=== PATIENT | male | born 1965 | race Native Hawaiian/Other Pacific Islander ===

== ENCOUNTER 2016-10-03 13:21 | Inpatient (IN) | payer MEDICARE, MEDICAID ==
[~2016-10-03] VITALS: Ht 180.3 cm; Wt 127.5 kg
[~2016-10-03 13:21] MED LIST: BENZ1TAB10 PO; HALOD50I IM; MIRT15 PO; QUET200T PO
[2016-10-03] MEDS ORDERED: DiphenhydrAMINE HCL 50 MG/ML VIAL IM ONE (14:00)
[2016-10-03] MEDS ORDERED: LORazepam 2 MG/ML VIAL IM ONE ×2 (14:00→16:45)
[2016-10-03] MEDS ORDERED: HALOPERIDOL LACTATE 5 MG/ML VIAL IM ONE (14:00)
[2016-10-03 15:11] LABS: BASOPHILS % (AUTO) 0.5 % (0.0-2.0); EOSINOPHILS % (AUTO) 1.8 % (1.0-6.0); HEMATOCRIT 41.2 % (41-53); HEMOGLOBIN 13.4 g/dL (13.5-17.5); LYMPHOCYTES # (AUTO) 2.2 K/uL (1.0-4.8); LYMPHOCYTES % (AUTO) 23.3 % (22.0-44.0); MEAN CORPUSCULAR HEMOGLOBIN 28.8 pg (26.0-34.0); MEAN CORPUSCULAR HGB CONC 32.6 G/dL (31.0-37.0); MEAN CORPUSCULAR VOLUME 88 fL (80-100); MONOCYTES # (AUTO) 0.6 K/uL (0.1-1.0); MONOCYTES % (AUTO) 6.5 % (2.0-9.0); NEUTROPHILS # (AUTO) 6.5 K/uL (1.8-7.7); NEUTROPHILS % (AUTO) 67.9 % (40.0-70.0); PLATELET COUNT (AUTO) 295 K/uL (150-450); RED BLOOD CELL COUNT(AUTO) 4.67 MIL/uL (4.50-5.90); RED CELL DISTRIBUTION WIDTH 13.9 % (11.5-14.5); WHITE BLOOD COUNT (AUTO) 9.5 K/uL (4.5-11.0)
[2016-10-03] MEDS ORDERED: ZOLPIDEM TARTRATE 10 MG TABLET PO PRN (15:15)
[2016-10-03 15:19] LABS: ANION GAP 9 mmol/L (8-16); CALCIUM, TOTAL 9.1 mg/dL (8.8-10.5); CARBON DIOXIDE 26 mmol/L (22-29); CHLORIDE 103 mmol/L (98-107); CREATININE 0.77 mg/dL (0.60-1.30); GLOMERULAR FILTR. RATE CALC > 60 mL/min (>60); SODIUM SERUM 138 mmol/L (136-145); UREA NITROGEN, BLOOD 11 mg/dL (7-18)
[2016-10-03 15:24] LABS: ALANINE AMINOTRANSFERASE 27 U/L (12-78); ALBUMIN 4.1 g/dL (3.4-5.0); ASPARTATE AMINOTRANSFERASE 37 U/L (15-37); BILIRUBIN,TOTAL 0.3 mg/dL (0.1-1.0)
[2016-10-03] MEDS: HALOPERIDOL 5 MG TABLET PO PRN (23:04)
[2016-10-03] MEDS: LORazepam 2 MG TABLET PO PRN (23:04)
[2016-10-04 10:55] VITALS: BP 119/91
[2016-10-05] MEDS: LORazepam 2 MG TABLET PO PRN (07:53)
[2016-10-05] MEDS: HALOPERIDOL 5 MG TABLET PO PRN (07:53)
[2016-10-05 08:25] VITALS: BP 111/72
[2016-10-05] MEDS ORDERED: QUET200T PO ×2 (09:29→14:24)
[2016-10-05] MEDS ORDERED: HALOPERIDOL DECANOATE 50 MG/ML AMP IM SCH (09:30)
[2016-10-05] MEDS ORDERED: HALOPERIDOL DECANOATE 100 MG/ML AMP IM SCH (09:55)
[2016-10-05] MEDS: QUEtiapine FUMARATE 200 MG TABLET PO SCH (09:59)
[2016-10-05] MEDS ORDERED: ONDANSETRON HCL 4 MG TABLET PO PRN (13:15)
[2016-10-05] MEDS ORDERED: BACITRACIN 28.4 GM OINTMENT TP PRN (13:15)
[2016-10-05] MEDS ORDERED: PETROLATUM,WHITE 71 GM JELLY TP PRN (13:15)
[2016-10-05] MEDS ORDERED: ACETAMINOPHEN 325 MG TABLET PO PRN (13:15)
[2016-10-05] MEDS ORDERED: ALBUTEROL SULFATE HFA 90 MCG/PUFF 8 GM INHALER IH PRN (13:15)
[2016-10-05] MEDS ORDERED: IBUPROFEN 600 MG TABLET PO PRN (13:15)
[2016-10-05] MEDS ORDERED: MAG HYDROX/AL HYDROX/SIMETH ES 30 ML SUSPENSION UDCUP PO PRN (13:15)
[2016-10-05] MEDS ORDERED: LOPERAMIDE HCL 2 MG CAPSULE PO PRN (13:15)
[2016-10-05] MEDS ORDERED: BENZOCAINE/MENTHOL LOZENGE [8 LOZENGES/PACKET] MM PRN (13:15)
[2016-10-05] MEDS ORDERED: MAGNESIUM HYDROXIDE SUSPENSION 30 ML UDCUP PO PRN (13:15)
[2016-10-05] MEDS ORDERED: CloNIDine HCL 0.1 MG TABLET PO PRN (13:15)
[2016-10-05 16:39] VITALS: BP 136/62
[2016-10-05] MEDS ORDERED: QUEtiapine FUMARATE 200 MG TABLET PO SCH (21:00)
[2016-10-06 06:53] LABS: BASOPHILS % (AUTO) 0.4 % (0.0-2.0); EOSINOPHILS % (AUTO) 3.8 % (1.0-6.0); HEMOGLOBIN 13.7 g/dL (13.5-17.5); LYMPHOCYTES # (AUTO) 2.3 K/uL (1.0-4.8); LYMPHOCYTES % (AUTO) 26.4 % (22.0-44.0); MEAN CORPUSCULAR HEMOGLOBIN 28.5 pg (26.0-34.0); MEAN CORPUSCULAR HGB CONC 32.5 G/dL (31.0-37.0); MEAN CORPUSCULAR VOLUME 88 fL (80-100); MONOCYTES # (AUTO) 0.6 K/uL (0.1-1.0); MONOCYTES % (AUTO) 6.8 % (2.0-9.0); NEUTROPHILS # (AUTO) 5.5 K/uL (1.8-7.7); NEUTROPHILS % (AUTO) 62.6 % (40.0-70.0); PLATELET COUNT (AUTO) 293 K/uL (150-450); RED BLOOD CELL COUNT(AUTO) 4.79 MIL/uL (4.50-5.90); RED CELL DISTRIBUTION WIDTH 13.5 % (11.5-14.5); WHITE BLOOD COUNT (AUTO) 8.8 K/uL (4.5-11.0)
[2016-10-06 07:31] LABS: ALANINE AMINOTRANSFERASE 28 U/L (12-78); ALBUMIN 3.8 g/dL (3.4-5.0); ANION GAP 9 mmol/L (8-16); ASPARTATE AMINOTRANSFERASE 34 U/L (15-37); BILIRUBIN,TOTAL 0.4 mg/dL (0.1-1.0); CALCIUM, TOTAL 8.6 mg/dL (8.8-10.5); CARBON DIOXIDE 27 mmol/L (22-29); CHLORIDE 107 mmol/L (98-107); CHOL/HDL RATIO 3.4 (4.2-7.3); GLOMERULAR FILTR. RATE CALC > 60 mL/min (>60); PHOSPHORUS 3.8 mg/dL (2.5-4.9); POTASSIUM 3.9 mmol/L (3.5-5.1); SODIUM SERUM 143 mmol/L (136-145); THYROID STIMULATING HORMONE 1.93 uIU/mL (0.36-3.74); TOTAL PROTEIN, SERUM 7.7 g/dL (6.4-8.2); UREA NITROGEN, BLOOD 11 mg/dL (7-18)
[2016-10-06 07:34] LABS: HEMOGLOBIN A1C 5.4 % (4.5-6.2)
[2016-10-06 08:27] VITALS: BP 123/75
[2016-10-06] MEDS ORDERED: DOCUSATE SODIUM 100 MG CAPSULE PO SCH (09:00)
[2016-10-06] MEDS ORDERED: OMEPRAZOLE 20 MG CAPSULE PO SCH (09:00)
[2016-10-06] MEDS: LORazepam 2 MG TABLET PO PRN (10:00)
[2016-10-06] MEDS: QUEtiapine FUMARATE 200 MG TABLET PO SCH (10:00)
[2016-10-06] MEDS: HALOPERIDOL 5 MG TABLET PO PRN (10:00)
[2016-10-06] MEDS ORDERED: HALOD100I IM (10:07)
[2016-10-06] MEDS ORDERED: QUET200T PO (10:07)
[2016-10-06] MEDS ORDERED: DSS100 PO (12:42)
[2016-10-06] MEDS ORDERED: OMEP20 PO (12:42)
[2016-10-07 09:41] LABS: HEPATITIS Bs ANTIGEN SCREEN P Positive (Negative); HEPATITIS C AB SCREEN >11.0 s/co ratio (0.0-0.9)
== END 2016-10-06 14:15 | disposition home or self-care (01) | DRG 885 ==
LOC: EMS 13:23 → 3EC 10-04 10:07
PROVIDERS: ADMIT Psychiatry & Neurology Child & Adolescent Psychiatry; ATTEND Psychiatry & Neurology Child & Adolescent Psychiatry
DX: F25.9 Schizoaffective disorder, unspecified (principal); F20.0 Paranoid schizophrenia; F17.210 Nicotine dependence, cigarettes, uncomplicated; B18.2 Chronic viral hepatitis C; F15.90 Other stimulant use, unspecified, uncomplicated; I10 Essential (primary) hypertension; J44.9 Chronic obstructive pulmonary disease, unspecified; K21.9 Gastro-esophageal reflux disease without esophagitis; R41.83 Borderline intellectual functioning; F12.90 Cannabis use, unspecified, uncomplicated; Z72.89 Other problems related to lifestyle; Z71.41 Alcohol abuse counseling and surveillance of alcoholic; Z71.51 Drug abuse counseling and surveillance of drug abuser; Z71.6 Tobacco abuse counseling; Z79.899 Other long term (current) drug therapy; Z59.9 Problem related to housing and economic circumstances, unspecified; Z91.14 Patient's other noncompliance with medication regimen; Z91.5 Personal history of self-harm; Z79.51 Long term (current) use of inhaled steroids
CPT/HCPCS: 82306; 83036; 83735; 84100; 84443; 86706; 86707; 86709; 86803; 87340; 87350; 99285; 99406; G0480; J1200; J1630; J1631; J2060

== ENCOUNTER 2016-10-10 16:01 | Emergency (ER) | payer MEDICARE, MEDICAID ==
[~2016-10-10] VITALS: Ht 180.3 cm; Wt 122.7 kg
[~2016-10-10 16:01] MED LIST changes: -BENZ1TAB10 PO; +DSS100 PO; +HALOD100I IM; -HALOD50I IM; -MIRT15 PO; +OMEP20 PO
[2016-10-10 16:42] VITALS: BP 139/71
[2016-10-10 16:46] LABS: APPEARANCE,URINE CLOUDY (CLEAR); GLUCOSE, URINE (UA) NEGATIVE (NEGATIVE); KETONES,URINE NEGATIVE (NEGATIVE); LEUKOCYTE ESTERASE ,URINE SMALL (NEGATIVE); PROTEIN,URINE POS 1+ (NEGATIVE)
[2016-10-10 16:52] LABS: ADD UA MICROSCOPIC YES; OCCULT BLOOD,URINE TRACE (NEGATIVE)
[2016-10-10 16:53] LABS: SQUAMOUS EPITHELIAL CELL,UR Many /LPF (None Seen)
[2016-10-10 17:40] LABS: BASOPHILS % (AUTO) 0.6 % (0.0-2.0); EOSINOPHILS % (AUTO) 2.4 % (1.0-6.0); HEMATOCRIT 42.6 % (41-53); HEMOGLOBIN 13.5 g/dL (13.5-17.5); LYMPHOCYTES # (AUTO) 2.7 K/uL (1.0-4.8); LYMPHOCYTES % (AUTO) 30.6 % (22.0-44.0); MEAN CORPUSCULAR HEMOGLOBIN 28.2 pg (26.0-34.0); MEAN CORPUSCULAR HGB CONC 31.8 G/dL (31.0-37.0); MEAN CORPUSCULAR VOLUME 89 fL (80-100); MONOCYTES # (AUTO) 0.5 K/uL (0.1-1.0); MONOCYTES % (AUTO) 5.4 % (2.0-9.0); NEUTROPHILS # (AUTO) 5.4 K/uL (1.8-7.7); PLATELET COUNT (AUTO) 319 K/uL (150-450); RED BLOOD CELL COUNT(AUTO) 4.79 MIL/uL (4.50-5.90); RED CELL DISTRIBUTION WIDTH 13.8 % (11.5-14.5); WHITE BLOOD COUNT (AUTO) 8.8 K/uL (4.5-11.0)
[2016-10-10 17:49] LABS: ANION GAP 8 mmol/L (8-16); CALCIUM, TOTAL 9.6 mg/dL (8.8-10.5); CARBON DIOXIDE 29 mmol/L (22-29); CHLORIDE 107 mmol/L (98-107); CREATININE 0.77 mg/dL (0.60-1.30); GLOMERULAR FILTR. RATE CALC > 60 mL/min (>60); POTASSIUM 4.3 mmol/L (3.5-5.1); SODIUM SERUM 144 mmol/L (136-145); UREA NITROGEN, BLOOD 9 mg/dL (7-18)
[2016-10-10 17:55] LABS: ALANINE AMINOTRANSFERASE 30 U/L (12-78); ALBUMIN 4.3 g/dL (3.4-5.0); ASPARTATE AMINOTRANSFERASE 29 U/L (15-37); BILIRUBIN,TOTAL 0.3 mg/dL (0.1-1.0); TOTAL PROTEIN, SERUM 8.4 g/dL (6.4-8.2)
[2016-10-10] MEDS ORDERED: LORazepam 2 MG TABLET PO ONE (18:30)
[2016-10-10] MEDS ORDERED: HALOPERIDOL 5 MG TABLET PO ONE (18:30)
== END 2016-10-10 19:16 | disposition home or self-care (01) ==
LOC: EMS 16:03
DX: F41.9 Anxiety disorder, unspecified (principal); F20.9 Schizophrenia, unspecified; R45.850 Homicidal ideations; N39.0 Urinary tract infection, site not specified; F32.9 Major depressive disorder, single episode, unspecified; I10 Essential (primary) hypertension; F17.200 Nicotine dependence, unspecified, uncomplicated
CPT/HCPCS: 36415; 80053; 80307; 81001; 85025; 87086; 99284; 99406; G0480

== ENCOUNTER 2016-10-15 14:59 | Inpatient (IN) | payer MEDICARE, MEDICAID ==
[~2016-10-15] VITALS: Ht 180.3 cm; Wt 122.3 kg
[2016-10-15] MEDS ORDERED: ZOLPIDEM TARTRATE 5 MG TABLET PO PRN (20:00)
[2016-10-15 20:01] VITALS: BP 129/75
[2016-10-15] MEDS ORDERED: ACETAMINOPHEN 325 MG TABLET PO PRN (20:15)
[2016-10-15] MEDS ORDERED: IBUPROFEN 600 MG TABLET PO PRN (20:15)
[2016-10-15] MEDS ORDERED: CloNIDine HCL 0.1 MG TABLET PO PRN (20:15)
[2016-10-15 20:24] VITALS: BP 129/75
[2016-10-15 21:04] LABS: BASOPHILS % (AUTO) 1.5 % (0.0-2.0); EOSINOPHILS % (AUTO) 3.2 % (1.0-6.0); HEMATOCRIT 42.3 % (41-53); HEMOGLOBIN 13.5 g/dL (13.5-17.5); LYMPHOCYTES # (AUTO) 3.2 K/uL (1.0-4.8); LYMPHOCYTES % (AUTO) 34.4 % (22.0-44.0); MEAN CORPUSCULAR HEMOGLOBIN 28.4 pg (26.0-34.0); MEAN CORPUSCULAR HGB CONC 31.9 G/dL (31.0-37.0); MEAN CORPUSCULAR VOLUME 89 fL (80-100); MONOCYTES # (AUTO) 0.8 K/uL (0.1-1.0); MONOCYTES % (AUTO) 8.9 % (2.0-9.0); NEUTROPHILS # (AUTO) 4.9 K/uL (1.8-7.7); PLATELET COUNT (AUTO) 297 K/uL (150-450); RED BLOOD CELL COUNT(AUTO) 4.76 MIL/uL (4.50-5.90); RED CELL DISTRIBUTION WIDTH 13.6 % (11.5-14.5); WHITE BLOOD COUNT (AUTO) 9.4 K/uL (4.5-11.0)
[2016-10-15 21:14] LABS: ALANINE AMINOTRANSFERASE 25 U/L (12-78); ALBUMIN 3.6 g/dL (3.4-5.0); ANION GAP 6 mmol/L (8-16); ASPARTATE AMINOTRANSFERASE 26 U/L (15-37); BILIRUBIN,TOTAL 0.4 mg/dL (0.1-1.0); CARBON DIOXIDE 30 mmol/L (22-29); CHLORIDE 105 mmol/L (98-107); CHOL/HDL RATIO 3.1 (4.2-7.3); CREATININE 0.88 mg/dL (0.60-1.30); GLOMERULAR FILTR. RATE CALC > 60 mL/min (>60); POTASSIUM 4.8 mmol/L (3.5-5.1); SODIUM SERUM 141 mmol/L (136-145); TOTAL PROTEIN, SERUM 7.7 g/dL (6.4-8.2); UREA NITROGEN, BLOOD 10 mg/dL (7-18)
[2016-10-15] MEDS: HALOPERIDOL 5 MG TABLET PO PRN (21:40)
[2016-10-15] MEDS: LORazepam 2 MG TABLET PO PRN (21:41)
[2016-10-15 22:22] LABS: ADD UA MICROSCOPIC NO; APPEARANCE,URINE CLEAR (CLEAR); GLUCOSE, URINE (UA) NEGATIVE (NEGATIVE); KETONES,URINE NEGATIVE (NEGATIVE); LEUKOCYTE ESTERASE ,URINE NEGATIVE (NEGATIVE); OCCULT BLOOD,URINE NEGATIVE (NEGATIVE); PH,URINE 6.5 (5.0-8.0); PROTEIN,URINE NEGATIVE (NEGATIVE)
[2016-10-16] MEDS ORDERED: PNEUMOCOCCAL VACCINE POLYVALENT 0.5 ML VIAL [PPSV23] IM ONE (07:15)
[2016-10-16] MEDS ORDERED: LOPERAMIDE HCL 2 MG CAPSULE PO PRN (08:15)
[2016-10-16] MEDS ORDERED: BENZOCAINE/MENTHOL LOZENGE [8 LOZENGES/PACKET] MM PRN (08:15)
[2016-10-16] MEDS ORDERED: PETROLATUM,WHITE 71 GM JELLY TP PRN (08:15)
[2016-10-16] MEDS ORDERED: ALBUTEROL SULFATE HFA 90 MCG/PUFF 8 GM INHALER IH PRN (08:15)
[2016-10-16] MEDS ORDERED: ONDANSETRON HCL 4 MG TABLET PO PRN (08:15)
[2016-10-16] MEDS ORDERED: BACITRACIN 28.4 GM OINTMENT TP PRN (08:15)
[2016-10-16] MEDS ORDERED: MAG HYDROX/AL HYDROX/SIMETH ES 30 ML SUSPENSION UDCUP PO PRN (08:15)
[2016-10-16] MEDS ORDERED: MAGNESIUM HYDROXIDE SUSPENSION 30 ML UDCUP PO PRN (08:15)
[2016-10-16 08:27] VITALS: BP 123/62
[2016-10-16] MEDS: HALOPERIDOL 5 MG TABLET PO PRN (09:43)
[2016-10-16] MEDS: LORazepam 2 MG TABLET PO PRN (09:43)
[2016-10-16 17:10] VITALS: BP 104/72
[2016-10-17] MEDS: LORazepam 2 MG TABLET PO PRN ×2 (06:17→10:18)
[2016-10-17 08:50] VITALS: BP 122/72
[2016-10-17] MEDS: HALOPERIDOL 5 MG TABLET PO PRN (10:19)
[2016-10-17 17:51] VITALS: BP 114/71
[2016-10-18 08:00] VITALS: BP 118/74
[2016-10-18] MEDS: LORazepam 2 MG TABLET PO PRN (10:31)
[2016-10-18] MEDS: HALOPERIDOL 5 MG TABLET PO PRN (10:31)
[2016-10-18 16:42] VITALS: BP 123/76
[2016-10-19] MEDS: HALOPERIDOL 5 MG TABLET PO PRN (07:50)
[2016-10-19] MEDS: LORazepam 2 MG TABLET PO PRN (07:50)
[2016-10-19 08:30] VITALS: BP 105/59
[2016-10-19 16:17] VITALS: BP 118/72
[2016-10-20 09:16] VITALS: BP 111/85
[2016-10-20 18:33] VITALS: BP 125/91
[2016-10-21 08:11] VITALS: BP 105/61
[2016-10-21] MEDS ORDERED: TUBERCULIN, PURIFIED PROTEIN DERIVATIVE 5 TU/0.1 ML SYG ID ONE (15:00)
[2016-10-21 16:31] VITALS: BP 140/60
[2016-10-22 09:28] VITALS: BP 114/61
[2016-10-22 16:17] VITALS: BP 118/82
[2016-10-23 07:20] VITALS: BP 120/78
[2016-10-23 09:31] VITALS: BP 134/64
[2016-10-23 13:43] LABS: HEPATITIS Bs ANTIGEN SCREEN P Positive (Negative); HEPATITIS C AB SCREEN >11.0 s/co ratio (0.0-0.9)
[2016-10-23 14:01] VITALS: BP 129/71
[2016-10-23 16:02] VITALS: BP 129/71
[2016-10-24 08:15] VITALS: BP 131/60
[2016-10-24 21:46] VITALS: BP 127/74
[2016-10-25 08:15] VITALS: BP 118/69
[2016-10-25] MEDS ORDERED: HALOPERIDOL DECANOATE 100 MG/ML VIAL IM SCH (09:00)
[2016-10-25 16:05] VITALS: BP 110/74
[2016-10-26 08:15] VITALS: BP 108/70
[2016-10-26 16:26] VITALS: BP 121/69
[2016-10-27 08:15] VITALS: BP 98/67
[2016-10-27 20:44] VITALS: BP 110/74
[2016-10-28 10:50] VITALS: BP 118/77
[2016-10-28 16:30] VITALS: BP 121/81
[2016-10-29 09:22] VITALS: BP 115/67
[2016-10-29 17:23] VITALS: BP 135/76
[2016-10-30 09:08] VITALS: BP 105/56
[2016-10-30 16:10] VITALS: BP 138/76
[2016-10-31 08:02] VITALS: BP 102/68
[2016-10-31 17:36] VITALS: BP 113/80
[2016-11-01 08:01] VITALS: BP 124/76
[2016-11-01 18:15] VITALS: BP 116/70
[2016-11-02 08:04] VITALS: BP 124/74
[2016-11-02 16:34] VITALS: BP 101/61
[2016-11-03 08:00] VITALS: BP 99/66
[2016-11-03] MEDS ORDERED: HALOD100I IM (10:37)
== END 2016-11-03 14:50 | disposition home or self-care (01) | DRG 885 ==
LOC: 3EC 19:45 → 3EI 10-18 13:20
PROVIDERS: ADMIT Psychiatry & Neurology Psychiatry; ATTEND Psychiatry & Neurology Psychiatry
DX: F20.0 Paranoid schizophrenia (principal); B19.10 Unspecified viral hepatitis B without hepatic coma; R41.83 Borderline intellectual functioning; J44.9 Chronic obstructive pulmonary disease, unspecified; K21.9 Gastro-esophageal reflux disease without esophagitis; I10 Essential (primary) hypertension; E66.9 Obesity, unspecified; E55.9 Vitamin D deficiency, unspecified; F17.200 Nicotine dependence, unspecified, uncomplicated; K59.00 Constipation, unspecified; G47.00 Insomnia, unspecified; B18.2 Chronic viral hepatitis C; Z28.21 Immunization not carried out because of patient refusal; Z91.02 Food additives allergy status; Z91.5 Personal history of self-harm; Z80.9 Family history of malignant neoplasm, unspecified; Z71.6 Tobacco abuse counseling; Z68.37 Body mass index [BMI] 37.0-37.9, adult; Z81.1 Family history of alcohol abuse and dependence; Z59.9 Problem related to housing and economic circumstances, unspecified; B19.20 Unspecified viral hepatitis C without hepatic coma
CPT/HCPCS: 80074; 80307; 83036; 87081; J1631

== ENCOUNTER 2017-12-15 10:29 | Inpatient (IN) | payer MEDICARE, MEDICAID ==
[~2017-12-15] VITALS: Ht 175.3 cm; Wt 122.7 kg
[~2017-12-15 10:29] MED LIST changes: -DSS100 PO; -OMEP20 PO; -QUET200T PO
[2017-12-15] MEDS ORDERED: MIRT15TA PO (11:11)
[2017-12-15] MEDS ORDERED: QUET400T12 PO (11:11)
[2017-12-15] MEDS ORDERED: BENZ2AMP IM (11:11)
[2017-12-15 11:13] LABS: BASOPHILS % (AUTO) 0.6 % (0.0-2.0); HEMATOCRIT 39.3 % (41-53); HEMOGLOBIN 13.3 g/dL (13.5-17.5); LYMPHOCYTES # (AUTO) 1.3 K/uL (1.0-4.8); LYMPHOCYTES % (AUTO) 12.6 % (22.0-44.0); MEAN CORPUSCULAR VOLUME 88 fL (80-100); MONOCYTES # (AUTO) 0.6 K/uL (0.1-1.0); MONOCYTES % (AUTO) 5.4 % (2.0-9.0); NEUTROPHILS % (AUTO) 77.4 % (40.0-70.0); PLATELET COUNT (AUTO) 280 K/uL (150-450); RED BLOOD CELL COUNT(AUTO) 4.44 MIL/uL (4.50-5.90); RED CELL DISTRIBUTION WIDTH 13.8 % (11.5-14.5)
[2017-12-15 11:23] LABS: ANION GAP 5 mmol/L (8-16); CALCIUM, TOTAL 8.5 mg/dL (8.8-10.5); CARBON DIOXIDE 27 mmol/L (22-29); CHLORIDE 105 mmol/L (98-107); CREATININE 0.85 mg/dL (0.60-1.30); GLOMERULAR FILTR. RATE CALC > 60 mL/min (>60); GLUCOSE,RANDOM 88 mg/dL (70-110); POTASSIUM 3.5 mmol/L (3.5-5.1); SODIUM SERUM 137 mmol/L (136-145); UREA NITROGEN, BLOOD 6 mg/dL (7-18)
[2017-12-15 11:31] LABS: ALANINE AMINOTRANSFERASE 43 U/L (12-78); ALBUMIN 3.7 g/dL (3.4-5.0); ALKALINE PHOSPHATASE 100 U/L (46-116); ASPARTATE AMINOTRANSFERASE 54 U/L (15-37); BILIRUBIN,TOTAL 0.3 mg/dL (0.1-1.0); TOTAL PROTEIN, SERUM 7.5 g/dL (6.4-8.2)
[2017-12-15] MEDS ORDERED: IPRATROPIUM BROMIDE 0.5 MG/2.5 ML NEB SOLUTION NEB ONE (11:45)
[2017-12-15] MEDS ORDERED: ALBUTEROL SULFATE 2.5 MG/0.5 ML NEB SOLUTION NEB ONE (11:45)
[2017-12-15 11:47] LABS: SALICYLATE 3.6 mg/dL (2.8-20.0)
[2017-12-15 12:00] LABS: ACETAMINOPHEN < 2 mcg/mL (10-30)
[2017-12-15] MEDS ORDERED: HALOPERIDOL 5 MG TABLET PO PRN (14:45)
[2017-12-15] MEDS ORDERED: LORazepam 2 MG TABLET PO PRN (14:45)
[2017-12-15] MEDS ORDERED: ZOLPIDEM TARTRATE 10 MG TABLET PO PRN (14:45)
[2017-12-15 15:37] LABS: CHOLESTEROL 143 mg/dL (131-200); HDL CHOLESTEROL 48 mg/dL (40-60); LDL CHOL (CALC.) 85 mg/dL (0-130); TRIGLYCERIDES 48 mg/dL (15-150)
[2017-12-15] MEDS: BENZTROPINE MESYLATE 1 MG TABLET PO SCH (17:17)
[2017-12-15 17:59] VITALS: BP 140/88
[2017-12-15] MEDS ORDERED: BACITRACIN 28.4 GM OINTMENT TP PRN (18:00)
[2017-12-15] MEDS ORDERED: ACETAMINOPHEN 325 MG TABLET PO PRN (18:00)
[2017-12-15] MEDS ORDERED: LOPERAMIDE HCL 2 MG CAPSULE PO PRN (18:00)
[2017-12-15] MEDS ORDERED: ONDANSETRON HCL 4 MG TABLET PO PRN (18:00)
[2017-12-15] MEDS ORDERED: CloNIDine HCL 0.1 MG TABLET PO PRN (18:00)
[2017-12-15] MEDS ORDERED: MAG HYDROX/AL HYDROX/SIMETH ES 30 ML SUSPENSION UDCUP PO PRN (18:00)
[2017-12-15] MEDS ORDERED: IBUPROFEN 600 MG TABLET PO PRN (18:00)
[2017-12-15] MEDS ORDERED: ALBUTEROL SULFATE HFA 90 MCG/PUFF 8 GM INHALER IH PRN (18:00)
[2017-12-15] MEDS ORDERED: BENZOCAINE/MENTHOL LOZENGE MM PRN (18:00)
[2017-12-15] MEDS ORDERED: PETROLATUM,WHITE 71 GM JELLY TP PRN (18:00)
[2017-12-15] MEDS ORDERED: MAGNESIUM HYDROXIDE SUSPENSION 30 ML UDCUP PO PRN (18:00)
[2017-12-15] MEDS ORDERED: QUEtiapine FUMARATE 200 MG TABLET PO SCH (21:00)
[2017-12-16 07:19] LABS: % IRON SATURATION 12.8 % (30-44); SALICYLATE 3.2 mg/dL (2.8-20.0)
[2017-12-16 07:23] LABS: THYROID STIMULATING HORMONE 1.05 uIU/mL (0.36-3.74)
[2017-12-16 08:05] VITALS: BP 92/62
[2017-12-16] MEDS ORDERED: BENZTROPINE MESYLATE 1 MG TABLET PO SCH (09:00)
[2017-12-16] MEDS: DOCUSATE SODIUM 100 MG CAPSULE PO SCH (09:10)
[2017-12-16] MEDS: OMEPRAZOLE 20 MG CAPSULE PO SCH (09:10)
[2017-12-16] MEDS: BENZTROPINE MESYLATE 1 MG TABLET PO SCH ×2 (09:10→17:16)
[2017-12-16] MEDS: MIRTAZAPINE 15 MG TABLET PO SCH (09:20)
[2017-12-16] MEDS ORDERED: HALOPERIDOL DECANOATE 50 MG/ML VIAL IM SCH (12:15)
[2017-12-16 17:27] VITALS: BP 92/57
[2017-12-16] MEDS: QUEtiapine FUMARATE 200 MG TABLET PO SCH (20:27)
[2017-12-17] MEDS: MIRTAZAPINE 15 MG TABLET PO SCH (07:39)
[2017-12-17] MEDS: OMEPRAZOLE 20 MG CAPSULE PO SCH (07:39)
[2017-12-17] MEDS: CHOLECALCIFEROL (VIT D3) 1,000 UNITS TABLET PO SCH (07:39)
[2017-12-17] MEDS: BENZTROPINE MESYLATE 1 MG TABLET PO SCH ×2 (07:39→16:24)
[2017-12-17] MEDS: DOCUSATE SODIUM 100 MG CAPSULE PO SCH (07:39)
[2017-12-17 09:49] VITALS: BP 110/54
[2017-12-17 19:16] VITALS: BP 105/64
[2017-12-17] MEDS: QUEtiapine FUMARATE 200 MG TABLET PO SCH (20:33)
[2017-12-18 08:11] VITALS: BP 109/58
[2017-12-18] MEDS: BENZTROPINE MESYLATE 1 MG TABLET PO SCH ×2 (08:30→17:07)
[2017-12-18] MEDS: MIRTAZAPINE 15 MG TABLET PO SCH (08:30)
[2017-12-18] MEDS: OMEPRAZOLE 20 MG CAPSULE PO SCH (08:31)
[2017-12-18] MEDS: CHOLECALCIFEROL (VIT D3) 1,000 UNITS TABLET PO SCH (08:31)
[2017-12-18] MEDS: DOCUSATE SODIUM 100 MG CAPSULE PO SCH (08:31)
[2017-12-18 16:51] VITALS: BP 102/67
[2017-12-18] MEDS: QUEtiapine FUMARATE 200 MG TABLET PO SCH (20:38)
[2017-12-19 08:20] VITALS: BP 95/59
[2017-12-19] MEDS: BENZTROPINE MESYLATE 1 MG TABLET PO SCH ×2 (08:24→16:56)
[2017-12-19] MEDS: DOCUSATE SODIUM 100 MG CAPSULE PO SCH (08:24)
[2017-12-19] MEDS: CHOLECALCIFEROL (VIT D3) 1,000 UNITS TABLET PO SCH (08:24)
[2017-12-19] MEDS: MIRTAZAPINE 15 MG TABLET PO SCH (08:24)
[2017-12-19] MEDS: OMEPRAZOLE 20 MG CAPSULE PO SCH (08:26)
[2017-12-19 18:36] VITALS: BP 96/55
[2017-12-19] MEDS: QUEtiapine FUMARATE 200 MG TABLET PO SCH (20:47)
[2017-12-20] MEDS: CHOLECALCIFEROL (VIT D3) 1,000 UNITS TABLET PO SCH (09:44)
[2017-12-20] MEDS: BENZTROPINE MESYLATE 1 MG TABLET PO SCH ×2 (09:44→16:24)
[2017-12-20] MEDS: DOCUSATE SODIUM 100 MG CAPSULE PO SCH (09:44)
[2017-12-20] MEDS: OMEPRAZOLE 20 MG CAPSULE PO SCH (09:44)
[2017-12-20] MEDS: MIRTAZAPINE 15 MG TABLET PO SCH (09:45)
[2017-12-20 10:03] VITALS: BP 118/66
[2017-12-20 19:51] VITALS: BP 96/70
[2017-12-20] MEDS: QUEtiapine FUMARATE 200 MG TABLET PO SCH (20:32)
[2017-12-21] MEDS: DOCUSATE SODIUM 100 MG CAPSULE PO SCH (09:23)
[2017-12-21] MEDS: BENZTROPINE MESYLATE 1 MG TABLET PO SCH ×2 (09:23→16:18)
[2017-12-21] MEDS: OMEPRAZOLE 20 MG CAPSULE PO SCH (09:23)
[2017-12-21] MEDS: CHOLECALCIFEROL (VIT D3) 1,000 UNITS TABLET PO SCH (09:23)
[2017-12-21] MEDS: MIRTAZAPINE 15 MG TABLET PO SCH (09:23)
[2017-12-21 09:25] VITALS: BP 104/52
[2017-12-21] MEDS ORDERED: TUBERCULIN, PURIFIED PROTEIN DERIVATIVE 5 TU/0.1 ML SYG ID ONE (14:15)
[2017-12-21 14:46] LABS: APPEARANCE,URINE CLEAR (CLEAR); BILIRUBIN,URINE NEGATIVE (NEGATIVE); GLUCOSE, URINE (UA) NEGATIVE (NEGATIVE); KETONES,URINE NEGATIVE (NEGATIVE); LEUKOCYTE ESTERASE ,URINE NEGATIVE (NEGATIVE); NITRATE,URINE NEGATIVE (NEGATIVE); OCCULT BLOOD,URINE NEGATIVE (NEGATIVE); PH,URINE 5.5 (5.0-8.0); PROTEIN,URINE NEGATIVE (NEGATIVE)
[2017-12-21 14:50] LABS: AMPHET/METH SCREEN,URINE NEGATIVE (NEGATIVE); BARBITURATE SCREEN, URINE NEGATIVE (NEGATIVE); BENZODIAZEPINES SCREEN,URINE NEGATIVE (NEGATIVE); CANNABINOID SCREEN,URINE NEGATIVE (NEGATIVE); COCAINE SCREEN,URINE NEGATIVE (NEGATIVE); METHADONE SCREEN, URINE NEGATIVE (NEGATIVE); OPIATE SCREEN,URINE NEGATIVE (NEGATIVE)
[2017-12-21 14:51] LABS: PHENCYCLIDINE SCREEN,URINE NEGATIVE (NEGATIVE)
[2017-12-21 19:59] VITALS: BP 128/79
[2017-12-21] MEDS: QUEtiapine FUMARATE 200 MG TABLET PO SCH (20:25)
[2017-12-22] MEDS: CHOLECALCIFEROL (VIT D3) 1,000 UNITS TABLET PO SCH (07:44)
[2017-12-22] MEDS: MIRTAZAPINE 15 MG TABLET PO SCH (07:44)
[2017-12-22] MEDS: DOCUSATE SODIUM 100 MG CAPSULE PO SCH (07:44)
[2017-12-22] MEDS: OMEPRAZOLE 20 MG CAPSULE PO SCH (07:44)
[2017-12-22] MEDS: BENZTROPINE MESYLATE 1 MG TABLET PO SCH ×2 (07:44→16:08)
[2017-12-22 08:54] VITALS: BP 97/54
[2017-12-22 17:00] VITALS: BP 98/57
[2017-12-22] MEDS: QUEtiapine FUMARATE 200 MG TABLET PO SCH (21:15)
[2017-12-23 08:30] VITALS: BP 101/52
[2017-12-23] MEDS: OMEPRAZOLE 20 MG CAPSULE PO SCH (08:30)
[2017-12-23] MEDS: BENZTROPINE MESYLATE 1 MG TABLET PO SCH ×2 (08:30→16:12)
[2017-12-23] MEDS: DOCUSATE SODIUM 100 MG CAPSULE PO SCH (08:30)
[2017-12-23] MEDS: MIRTAZAPINE 15 MG TABLET PO SCH (08:30)
[2017-12-23] MEDS: CHOLECALCIFEROL (VIT D3) 1,000 UNITS TABLET PO SCH (08:30)
[2017-12-23 19:09] VITALS: BP 104/65
[2017-12-23] MEDS: QUEtiapine FUMARATE 200 MG TABLET PO SCH (20:22)
[2017-12-24] MEDS: CHOLECALCIFEROL (VIT D3) 1,000 UNITS TABLET PO SCH (09:05)
[2017-12-24] MEDS: DOCUSATE SODIUM 100 MG CAPSULE PO SCH (09:05)
[2017-12-24] MEDS: BENZTROPINE MESYLATE 1 MG TABLET PO SCH ×2 (09:05→16:53)
[2017-12-24] MEDS: MIRTAZAPINE 15 MG TABLET PO SCH (09:06)
[2017-12-24] MEDS: OMEPRAZOLE 20 MG CAPSULE PO SCH (09:06)
[2017-12-24 10:15] VITALS: BP 106/64
[2017-12-24 19:31] VITALS: BP 128/87
[2017-12-24] MEDS: QUEtiapine FUMARATE 200 MG TABLET PO SCH (20:09)
[2017-12-25 08:30] VITALS: BP 107/70
[2017-12-25] MEDS: CHOLECALCIFEROL (VIT D3) 1,000 UNITS TABLET PO SCH (08:55)
[2017-12-25] MEDS: DOCUSATE SODIUM 100 MG CAPSULE PO SCH (08:55)
[2017-12-25] MEDS: BENZTROPINE MESYLATE 1 MG TABLET PO SCH ×2 (08:55→16:04)
[2017-12-25] MEDS: OMEPRAZOLE 20 MG CAPSULE PO SCH (08:55)
[2017-12-25] MEDS: MIRTAZAPINE 15 MG TABLET PO SCH (08:55)
[2017-12-25 16:47] VITALS: BP 113/77
[2017-12-25] MEDS: QUEtiapine FUMARATE 200 MG TABLET PO SCH (20:38)
[2017-12-26 08:30] VITALS: BP 116/78
[2017-12-26] MEDS: DOCUSATE SODIUM 100 MG CAPSULE PO SCH (09:52)
[2017-12-26] MEDS: MIRTAZAPINE 15 MG TABLET PO SCH (09:52)
[2017-12-26] MEDS: OMEPRAZOLE 20 MG CAPSULE PO SCH (09:52)
[2017-12-26] MEDS: CHOLECALCIFEROL (VIT D3) 1,000 UNITS TABLET PO SCH (09:52)
[2017-12-26] MEDS: BENZTROPINE MESYLATE 1 MG TABLET PO SCH ×2 (09:52→16:33)
[2017-12-26] MEDS: QUEtiapine FUMARATE 200 MG TABLET PO SCH (20:12)
[2017-12-26 22:30] VITALS: BP 118/74
[2017-12-27] MEDS: CHOLECALCIFEROL (VIT D3) 1,000 UNITS TABLET PO SCH (08:58)
[2017-12-27] MEDS: OMEPRAZOLE 20 MG CAPSULE PO SCH (08:58)
[2017-12-27] MEDS: MIRTAZAPINE 15 MG TABLET PO SCH (08:59)
[2017-12-27] MEDS: BENZTROPINE MESYLATE 1 MG TABLET PO SCH (08:59)
[2017-12-27] MEDS: DOCUSATE SODIUM 100 MG CAPSULE PO SCH (08:59)
[2017-12-27 09:00] VITALS: BP 102/65
[2017-12-27] MEDS ORDERED: BENZ1TAB10 PO (11:59)
[2017-12-27] MEDS ORDERED: HALO50VI4 IM (12:00)
[2017-12-27] MEDS ORDERED: VITAD1000 PO (12:06)
[2017-12-27] MEDS ORDERED: DSS100 PO (12:06)
[2017-12-27] MEDS ORDERED: OMEP20 PO (12:06)
== END 2017-12-27 13:15 | disposition home or self-care (01) | DRG 885 ==
LOC: EMS 10:31 → 3EX 16:52
PROVIDERS: ADMIT Psychiatry & Neurology Psychiatry; ATTEND Psychiatry & Neurology Psychiatry
DX: F20.0 Paranoid schizophrenia (principal); I10 Essential (primary) hypertension; F41.9 Anxiety disorder, unspecified; F32.9 Major depressive disorder, single episode, unspecified; K21.9 Gastro-esophageal reflux disease without esophagitis; J44.9 Chronic obstructive pulmonary disease, unspecified; E55.9 Vitamin D deficiency, unspecified; E66.9 Obesity, unspecified; B18.2 Chronic viral hepatitis C; K59.00 Constipation, unspecified; G47.00 Insomnia, unspecified; F15.90 Other stimulant use, unspecified, uncomplicated; F17.200 Nicotine dependence, unspecified, uncomplicated; Z91.5 Personal history of self-harm; Z88.8 Allergy status to other drugs, medicaments and biological substances; Z91.018 Allergy to other foods; Z82.49 Family history of ischemic heart disease and other diseases of the circulatory system; Z59.9 Problem related to housing and economic circumstances, unspecified
CPT/HCPCS: 80307; 82306; 83540; 83550; 84443; 94640; 99285; G0480; G0481; J1631